=== PATIENT | female | born 1990 | race Caucasian/White ===

== ENCOUNTER → 2018-10-24 | Outpatient (REF) | payer BC ==
[2018-10-24 13:07] LABS: HEMATOCRIT 38.5 % (36.0-47.0); HEMOGLOBIN 13.5 g/dl (12.0-15.5); MEAN CORPUSCULAR HEMOGLOBIN 29.5 pg (27.0-33.0); MEAN CORPUSCULAR HGB CONC 35.1 g/dl (32.0-36.5); MEAN CORPUSCULAR VOLUME 84.1 fl (80.0-96.0); PLATELET COUNT, AUTOMATED 184 10^3/uL (150-450); RED BLOOD COUNT 4.58 10^6/uL (4.00-5.40); WHITE BLOOD COUNT 8.4 10^3/uL (4.0-10.0)
[2018-10-24 13:58] LABS: HEPATITIS C VIRUS ABY INDEX 0.1 INDEX (<0.8); HIV 1&2 SCREEN CENTAUR NEGATIVE (NEGATIVE); RUBELLA IgG QUALITATIVE IMMUNE (IMMUNE)
== END ==
LOC: M LAB REF 12:24
PROVIDERS: ATTEND Nurse Practitioner Women's Health
DX: Z34.81 Encounter for supervision of other normal pregnancy, first trimester (principal)

== ENCOUNTER → 2019-02-13 | Outpatient (CLI) | payer OTHER ==
[2019-02-13 12:51] LABS: HEMATOCRIT 33.5 % (36.0-47.0); HEMOGLOBIN 11.1 g/dl (12.0-15.5); MEAN CORPUSCULAR HEMOGLOBIN 28.1 pg (27.0-33.0); MEAN CORPUSCULAR HGB CONC 33.1 g/dl (32.0-36.5); MEAN CORPUSCULAR VOLUME 84.8 fl (80.0-96.0); PLATELET COUNT, AUTOMATED 259 10^3/uL (150-450); RED BLOOD COUNT 3.95 10^6/uL (4.00-5.40); WHITE BLOOD COUNT 13.5 10^3/uL (4.0-10.0)
== END ==
LOC: M LAB 11:06
PROVIDERS: ATTEND Nurse Practitioner Women's Health
DX: Z34.82 Encounter for supervision of other normal pregnancy, second trimester (principal); Z36.89 Encounter for other specified antenatal screening

== ENCOUNTER → 2019-04-08 | Outpatient (REF) | payer OTHER | LOC: M LAB REF 12:38 | PROVIDERS: ATTEND Obstetrics & Gynecology | DX: Z34.83 Encounter for supervision of other normal pregnancy, third trimester (principal) ==

== ENCOUNTER → 2019-04-09 | Outpatient (CLI) | payer OTHER ==
--- NOTE | 2019-04-09 20:28 | REP ---
Clinical: Anatomical evaluation. Comparison: None . Findings: Examination demonstrates a single live intrauterine in cephalic presentation. motion is identified by technologist. Placenta is noted anterior and grade I I without evidence for placenta previa or abruption. Amniotic fluid volume is normal. Cervix measures 5.5 cm in length and appears closed. No evidence for nuchal cord. Gestational age by LMP 35 weeks 6 days with WADE 05/08/2019 . Gestational age by current measurements 36 weeks 0 days with WADE 05/07/2019 . FHR equals 131 beats per minute. Estimated weight 3082 grams ( 78th percentile). Amniotic fluid index: 19.2 cm (7.7 - 24.9) Anatomical assessment demonstrates normal structures including cranium, choroid plexus, cavum, facial features, lungs, diaphragm, stomach, cord insertion/three-vessel cord, kidneys/bladder, and lower extremities. Limited evaluation of the posterior fossa, heart/ventricular outflow tracts, spine and upper extremities. Impression: 1. Single live intrauterine in cephalic presentation demonstrating appropriate estimated weight. 2. Anatomical limitations as noted above. Electronically Signed by Kip Barron MD 04/09/2019 08:20 P
== END ==
LOC: M RAD 10:53
PROVIDERS: ATTEND Obstetrics & Gynecology
DX: Z36.89 Encounter for other specified antenatal screening (principal); Z3A.36 36 weeks gestation of pregnancy